=== PATIENT | female | born 1990 | race Caucasian/White ===

== ENCOUNTER 2020-08-19 18:27 | Emergency (ER) | payer SELFPAY ==
[~2020-08-19] VITALS: Ht 167.6 cm; Wt 112.0 kg
--- NOTE | 2020-08-19 18:52 | NUR ---
Urine cup at triage
--- NOTE | 2020-08-19 18:53 | NUR ---
Orthostats at triage negative, pt drinking large water at triage, informed NPO
--- NOTE | 2020-08-19 19:05 | NUR ---
US NOTIFIED THIS RN THAT UNABLE TO LOCATE PT IN LOBBY
[2020-08-19 19:22] LABS: BASOPHILS % (AUTO) 1 % (0-1); EOSINOPHILS % (AUTO) 2 % (1-7); LYMPHOCYTES % (AUTO) 25 % (22-44); MEAN CORPUSCULAR HGB CONC 32.2 g/dL (32.4-35.8); MEAN PLATELET VOLUME 7.8 fL (7.4-10.4); MONOCYTES % (AUTO) 8 % (2-9); NEUTROPHILS % (AUTO) 65 % (42-75); PLATELET COUNT 384 x10^3/uL (130-400); RED BLOOD COUNT 5.11 x10^6/uL (3.82-5.3); RED CELL DISTRIBUTION WIDTH 17.2 % (9.6-15.2)
[2020-08-19 19:30] LABS: ALBUMIN 3.8 g/dL (3.4-5.0); ANION GAP 6 mmol/L (5-15); CALCIUM 8.7 mg/dL (8.5-10.1); CHLORIDE 107 mmol/L (98-107)
[2020-08-19 19:36] LABS: ALANINE AMINOTRANSFERASE 25 U/L (12-78); ALKALINE PHOSPHATASE 92 U/L (45-117); BILIRUBIN,TOTAL 0.3 mg/dL (0.2-1.0); CREATININE 0.76 mg/dL (0.55-1.02); TOTAL PROTEIN 7.9 g/dL (6.4-8.2)
[2020-08-19 21:07] LABS: MICROSCOPIC INDICATED
--- NOTE | 2020-08-19 21:11 | NUR ---
pt has c/o upper center abd pain with nausea and light orange blood in stool for the last couple days.
[2020-08-19] MEDS ORDERED: MAALOX/HYOSCYAMINE/LIDOCAINE 45 ML BTL ONE (21:25)
[2020-08-19] MEDS ORDERED: OMEPRAZOLE 20 MG CAPSULE.DR ONE (21:25)
[2020-08-19] MEDS ORDERED: ONDANSETRON ODT 4 MG ONE (21:25)
[2020-08-19] MEDS ORDERED: PLEASE ENTER ALLERGIES MC SCH (21:30)
[2020-08-19] MEDS ORDERED: ONDANSETRON ODT 4 MG PO ONE (21:30)
[2020-08-19] MEDS ORDERED: MAALOX/HYOSCYAMINE/LIDOCAINE 45 ML BTL PO ONE (21:30)
[2020-08-19] MEDS ORDERED: ONDANSETRON 4 MG TABLET PO ONE (21:30)
[2020-08-19] MEDS ORDERED: OMEPRAZOLE 20 MG CAPSULE.DR PO ONE (21:30)
[2020-08-19 21:34] VITALS: BP 129/69
== END 2020-08-19 22:18 | disposition home or self-care (01) ==
LOC: ED 21:25
DX: K29.00 Acute gastritis without bleeding (principal)
CPT/HCPCS: 36415; 76700; 80053; 81001; 83690; 84703; 85025; 87086; 99284; Q0162